=== PATIENT | female | born 1985 | race African-American/Black ===

== ENCOUNTER 2019-10-23 02:48 | Inpatient (IN) | payer OTHER ==
[~2019-10-23] VITALS: Ht 154.9 cm; Wt 59.0 kg
[2019-10-23] VITALS (9 sets, daily range): BP systolic 85–130; BP diastolic 44–67
--- NOTE | 2019-10-23 02:50 | NUR ---
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 Reports nausea; denies vomitting and diarrhea. patient ao3 with episodes of confusion. changed into gown; attached to monitor. all safety measures met.
--- NOTE | 2019-10-23 03:00 | NUR ---
ED Nurse Note: iv access established. blood collected; sent down to lab. unable to collect urine at this time; patient states urine will be provided when able. ekg done at bedside; NSR.
--- NOTE | 2019-10-23 03:28 | Emergency Room Report ---
History of Present Illness General Chief Complaint: Dizziness Source: Patient Present Illness HPI 34-year-old female presents the ED for evaluation. Brought in by EMS from home. Noted to be dizzy with nausea and vomiting. States she also feels short of breath. Denies chest pain. BP low per EMS. Denies any fevers or chills. States that she has "circulatory problems". States that she often has these problems and has to go to the hospital. Does not have a diagnosis. States she has not been prescribed any medication. No other aggravating relieving factors. Denies any other associated symptoms Allergies: Coded Allergies: IBUPROFEN (Verified Allergy, Unknown, 10/23/19) COVID-19 Screening Contact w/high risk pt: No Experienced COVID-19 symptoms?: No COVID-19 Testing performed ASSISTANT PROFESSOR: No Patient History Past Medical History: none Past Surgical History: none Pertinent Family History: none Social History: Denies: smoking, alcohol use, drug use Now: No Immunizations: UTD Reviewed Nursing Documentation: PMH: Agreed; PSxH: Agreed Review of Systems All Other Systems: negative except mentioned in HPI Physical Exam Vital Signs Date Time Temp Pulse Resp B/P (MAP) Pulse Ox O2 Delivery O2 Flow Rate FiO2 10/23/19 02:46 98.8 92 18 85/59 (68) 98 Room Air Sp02 EP Interpretation: reviewed, normal General Appearance: no apparent distress, alert, GCS 15, non-toxic Head: normocephalic, atraumatic Eyes: bilateral eye normal inspection, bilateral eye PERRL ENT: hearing grossly normal, normal pharynx, no angioedema, normal voice Neck: full range of motion, supple/symm/no masses Respiratory: chest non-tender, lungs clear, normal breath sounds, speaking full sentences Cardiovascular #1: regular rate, rhythm, no edema Cardiovascular #2: 2+ carotid (R), 2+ carotid (L), 2+ radial (R), 2+ radial (L) , 2+ dorsalis pedis (R), 2+ dorsalis pedis (L) Gastrointestinal: normal bowel sounds, non tender, soft, non-distended, no guarding, no rebound Rectal: deferred Genitourinary: normal inspection, no CVA tenderness Musculoskeletal: back normal, normal range of motion, gait/station normal, non- tender Neurologic: alert, motor strength/tone normal, oriented x3, sensory intact, responsive, speech normal Psychiatric: judgement/insight normal, memory normal, mood/affect normal, no suicidal/homicidal ideation Reflexes: 3+ bicep (R), 3+ bicep (L), 3+ tricep (R), 3+ tricep (L), 3+ knee (R) , 3+ knee (L) Lymphatic: no adenopathy Procedures Critical Care Time Critical Care Time i. I feel this is a highly complex case requiring extensive working including EKG/Rhythm strip, Xray/CT/US, Blood/urine lab work, repeat exams while in ED, and administration of strong opiates/narcotics for pain control, admission to hospital or close patient follow up. Total time: 45 min bedside evaluation and treatment excludes procedures (EKG). Reason for critical care: hyponatremia, hypokalemia, renal insufficiency Possible complications: hypotension, hypertension, MS, shock, arrhythmias, metabolic acidosis, end organ damage, respiratory failure. Interventions: Labs, IV fluids, EKG, potassium repletion Course: Patient presenting with dizziness, vomiting. Hypotensive in triage. Given IV fluids. EKG shows T wave inversions in lateral leads. Troponin negative. Sodium low. Potassium low. BUN/creatinine elevated. Given IV fluids. Given pepcid and Zofran. Potassium repleted. Consultations: nursing staff, EMS, family Performed by: Dr Otero Tolerated well condition = serious j. because of unstable vital signs this patient had a condition that could potentially threaten life or limb. I feel this is a critical patient who required my full attention while patient was considered critical. Total Critical Care Time excluding procedures was greater than 45 minutes Medical Decision Making Diagnostic Impression: Primary Impression: Dizziness Additional Impressions: Hyponatremia Hypokalemia ER Course Hospital Course 34 yo F presents to ED c/o dizziness. vomiting Differential diagnoses include: MS/unstable angina, V. tach, bradycardia, hyperkalemia, fluid overload Clinical course Patient placed on stretcher. on sourcing coordinator. After initial history and physical I ordered labs, EKG, IVFS, pepcid and zofran labs reviewed- Na 125, K 2.4. BUN/Cr 23/1.9m Hemoglobin/hematocrit normal. Given IV fluids. Given potassium repletion. BP initially hypotensive but improved with IV hydration. patient admitted to Tee's service I. I feel this is a highly complex case requiring extensive working including EKG/Rhythm strip, Xray/CT/US, Blood/urine lab work, repeat exams while in ED, and administration of strong opiates/narcotics for pain control, admission to hospital or close patient follow up. Diagnosis - dizziness, hyponatremia, hypokalemia admitted to telemetry in serious condition Laboratory Tests Test 10/23/19 03:00 10/23/19 03:50 10/23/19 04:45 White Blood Count 7.9 K/UL (4.8-10.8) Red Blood Count 4.86 M/UL (4.20-5.40) Hemoglobin 13.2 G/DL (12.0-16.0) Hematocrit 40.5 % (37.0-47.0) Mean Corpuscular Volume 83 FL (80-99) Mean Corpuscular Hemoglobin 27.1 PG (27.0-31.0) Mean Corpuscular Hemoglobin Concent 32.5 G/DL (32.0-36.0) Red Cell Distribution Width 12.8 % (11.6-14.8) Platelet Count 208 K/UL (150-450) Mean Platelet Volume 7.1 FL (6.5-10.1) Neutrophils (%) (Auto) 70.1 % (45.0-75.0) Lymphocytes (%) (Auto) 19.6 % (20.0-45.0) L Monocytes (%) (Auto) 7.7 % (1.0-10.0) Eosinophils (%) (Auto) 0.1 % (0.0-3.0) Basophils (%) (Auto) 2.4 % (0.0-2.0) H Sodium Level 125 MMOL/L (136-145) L Potassium Level 2.4 MMOL/L (3.5-5.1) *L Chloride Level 87 MMOL/L (98-107) L Carbon Dioxide Level 31 MMOL/L (21-32) Anion Gap 7 mmol/L (5-15) Blood Urea Nitrogen 23 mg/dL (7-18) H Creatinine 1.9 MG/DL (0.55-1.30) H Estimat Glomerular Filtration Rate 36.8 mL/min (>60) Glucose Level 114 MG/DL (74-106) H Calcium Level 9.1 MG/DL (8.5-10.1) Total Bilirubin 0.9 MG/DL (0.2-1.0) Aspartate Amino Transf (AST/SGOT) 21 U/L (15-37) Alanine Aminotransferase (ALT/SGPT) 28 U/L (12-78) Alkaline Phosphatase 84 U/L (46-116) Troponin I 0.000 ng/mL (0.000-0.056) Pro-B-Type Natriuretic Peptide 93 pg/mL (0-125) Total Protein 8.0 G/DL (6.4-8.2) Albumin 3.2 G/DL (3.4-5.0) L Globulin 4.8 g/dL Albumin/Globulin Ratio 0.7 (1.0-2.7) L Lipase 186 U/L (73-393) Urine Color Pale yellow Urine Appearance Clear Urine pH 5 (4.5-8.0) Urine Specific [place] 1.010 (1.005-1.035) Urine Protein Negative (NEGATIVE) Urine Glucose (UA) Negative (NEGATIVE) Urine Ketones Negative (NEGATIVE) Urine Blood Negative (NEGATIVE) Urine Nitrite Negative (NEGATIVE) Urine Bilirubin Negative (NEGATIVE) Urine Urobilinogen Normal MG/DL (0.0-1.0) Urine Leukocyte Esterase Negative (NEGATIVE) Urine HCG, Qualitative Negative (NEGATIVE) Urine Opiates Screen Negative (NEGATIVE) Urine Barbiturates Screen Negative (NEGATIVE) Phencyclidine (PCP) Screen Negative (NEGATIVE) Urine Amphetamines Screen Negative (NEGATIVE) Urine Benzodiazepines Screen Negative (NEGATIVE) Urine Cocaine Screen Negative (NEGATIVE) Urine Marijuana (THC) Screen Negative (NEGATIVE) EKG Diagnostic Results Rate: normal Rhythm: NSR ST Segments: other - twave inversions in inferior leads, lateral leads ASA given to the pt in ED: No Rhythm Strip Diag. Results EP Interpretation: yes Rhythm: NSR, no PVC's, no ectopy Last Vital Signs Date Time Temp Pulse Resp B/P (MAP) Pulse Ox O2 Delivery O2 Flow Rate FiO2 10/23/19 03:00 92 18 Room Air 10/23/19 03:00 98.8 85/59 98 Status: improved Disposition: SHORT-TERM HOSP Condition: Serious Referrals: [facility],REFERRING (PCP) Tomas Otero MD Oct 23, 2019 03:28
--- NOTE | 2019-10-23 03:31 | NUR ---
ED Nurse Note: imaging at bedside with radiology specialist.
[2019-10-23 03:47] LABS: BASOPHILS % (AUTO) 2.4 % (0.0-2.0); EOSINOPHILS % (AUTO) 0.1 % (0.0-3.0); HEMATOCRIT 40.5 % (37.0-47.0); HEMOGLOBIN 13.2 G/DL (12.0-16.0); LYMPHOCYTES % (AUTO) 19.6 % (20.0-45.0); MEAN CORPUSCULAR VOLUME 83 FL (80-99); MONOCYTES % (AUTO) 7.7 % (1.0-10.0); NEUTROPHILS % (AUTO) 70.1 % (45.0-75.0); PLATELET COUNT 208 K/UL (150-450); RED BLOOD COUNT 4.86 M/UL (4.20-5.40); RED CELL DISTRIBUTION WIDTH 12.8 % (11.6-14.8); WHITE BLOOD COUNT 7.9 K/UL (4.8-10.8)
[2019-10-23 04:25] LABS: ALANINE AMINOTRANSFERASE 28 U/L (12-78); ALBUMIN 3.2 G/DL (3.4-5.0); ALBUMIN/GLOBULIN RATIO 0.7 (1.0-2.7); ALKALINE PHOSPHATASE 84 U/L (46-116); ANION GAP 7 mmol/L (5-15); ASPARTATE AMINO TRANSFERASE 21 U/L (15-37); BILIRUBIN,TOTAL 0.9 MG/DL (0.2-1.0); BLOOD UREA NITROGEN 23 mg/dL (7-18); CALCIUM 9.1 MG/DL (8.5-10.1); CARBON DIOXIDE 31 MMOL/L (21-32); CHLORIDE 87 MMOL/L (98-107); CREATININE 1.9 MG/DL (0.55-1.30); SODIUM 125 MMOL/L (136-145)
[2019-10-23 04:33] LABS: POTASSIUM 2.4 MMOL/L (3.5-5.1)
[2019-10-23] MEDS ORDERED: NS w/KCl 40mEq 1,000 ML IV SCH (04:45)
--- NOTE | 2019-10-23 04:45 | NUR ---
ED Nurse Note: patient able to ambulate to bathroom with steady gait. urine collected; sent down to lab. reattached to monitor. will continue to monitor.
[2019-10-23 05:23] LABS: APPEARANCE,URINE CLEAR; BILIRUBIN, URINE NEGATIVE (NEGATIVE); COLOR,URINE PALE YELLOW; GLUCOSE, URINE (UA) NEGATIVE (NEGATIVE); KETONES,URINE NEGATIVE (NEGATIVE); LEUKOCYTE ESTERASE ,URINE NEGATIVE (NEGATIVE); NITRITE,URINE NEGATIVE (NEGATIVE); PH,URINE 5 (4.5-8.0); PROTEIN,URINE NEGATIVE (NEGATIVE); UROBILINOGEN,URINE NORMAL MG/DL (0.0-1.0)
--- NOTE | 2019-10-23 05:33 | NUR ---
ED Nurse Note: patient aware of pending transfer. resting in bed with no acute signs of distress. patient remains hypotensive; stable to baseline. sbp's 90-100s.
--- NOTE | 2019-10-23 06:17 | NUR ---
HAND-OFF: Report given to zahida Salmeron. endorsed pending transfer.
--- NOTE | 2019-10-23 06:20 | NUR ---
ED Nurse Note: received report from sylvain reynaga RN. patient is in stable condition at this time. will continue to monitor
--- NOTE | 2019-10-23 07:20 | NUR ---
TRANSFER TO FLOOR: Patient transferred to Telemetry as ordered, per Report given to zahida alejo. transported patient to tele accompanied by RN and EMT. patient has taken all belongings
--- NOTE | 2019-10-23 07:20 | NUR ---
NURSE NOTES: Received Pt report TIMOTHY Soni from ER. Pt admitted for dizziness, and electrolyte imbalance. Pt reported PMH of "confusion, SOB, fatigue, blurry vision, and circulatory condition". Pt lung sounds clear. Heart sounds WNL. Pt reports allergies to ibuprofen. No Hx of falls. Last BM 6-7 days ago. IV on L hand 18g, asymptomatic and intact. No complaints or S/S at this time. Will continue to monitor. Addendum: 10/23/19 at 0813 by Irene Bingham RN RN Bed low and locked, yellow socks provided and call light in reach. Pt instructed to utulize call light for any assistance. Pt verbalizes understanding.
[2019-10-23] MEDS: Miralax 17gm pkt ORAL PRN (08:54)
[2019-10-23] MEDS: NS w/KCl 40mEq 1,000 ML IV SCH ×2 (10:00→15:00)
--- NOTE | 2019-10-23 10:47 | History and Physical ---
History of Present Illness General Date patient seen: Oct 23, 2019 Time patient seen: 10:29 Reason for Hospitalization: Dizziness Present Illness HPI 34 year old Female with a PMH of "circulation issue" presents with nausea and vomiting for 8 weeks. It is non bloody and non bilious. She states that she can not keep nay food or drink down. It is provoked by her throat feeling dry which she cant get rid of. She has not had a BM in about6 days but when she did it was non bloody or black. He urine is output is low and very concentrated. She denies and fever, dysuria, chest pain, abdominal pain, headaches or recent travel. She denies drug use. She is recently out of work at [employer]. She has no family support. She feels down and depressed but does not have any SI or HI. Allergies: Coded Allergies: IBUPROFEN (Verified Allergy, Unknown, 10/23/19) COVID-19 Screening Contact w/high risk pt: No Experienced COVID-19 symptoms?: No Medication History Medications Narrative No meds Patient History History Provided By: Patient Healthcare decision maker Resuscitation status Full code Advanced Directive on File Social History Social History: (1) Non-smoker Review of Systems Constitutional: Reports: malaise, weakness; Denies: chills, sweats, fever Eye: Denies: double vision, nose congestion, acuity changes, discharge ENT: Reports: throat pain; Denies: ear discharge, nose pain, nose congestion, hearing loss Respiratory: Denies: cough, orthopnea, shortness of breath, stridor, [place] Cardiovascular: Denies: chest pain, edema, palpitations, syncope Gastrointestinal: Reports: constipation, nausea, vomiting; Denies: abdominal pain, diarrhea, melena, hematemesis Genitourinary: Denies: discharge, dysuria, frequency, pain, incontinence Musculoskeletal: Denies: back pain, joint pain, joint swelling, muscle pain Skin: Reports: dryness; Denies: rash, change in color, change in hair/nails Psychiatric: Reports: depressed feelings; Denies: SI, HI, hallucinations Neurological: Reports: dizziness; Denies: seizure, tingling, focal weakness Endocrine: Denies: excessive sweating, flushing, intolerance to temperature Hematologic/Lymphatic: Denies: anemia, easy bleeding, easy bruising Physical Exam General Appearance: WD/WN, alert, lethargic, alert oriented x3 Lines, tubes and drains: peripheral HEENT: normocephalic, atraumatic, anicteric, other - dry mucus membranes Neck: normal alignment, supple, normal inspection Respiratory/Chest: chest wall non-tender, lungs clear, normal breath sounds, no respiratory distress, no accessory muscle use Cardiovascular/Chest: normal peripheral pulses, normal rate, regular rhythm, no gallop/murmur, no JVD Abdomen: non tender, soft, no organomegaly, no mass, hypoactive bowel sounds Extremities: normal range of motion, non-tender, normal inspection Skin Exam: other - dry, tenting 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 normal, no motor/sensory deficits, alert, oriented x 3, responsive Last 24 Hour Vital Signs Date Time Temp Pulse Resp B/P (MAP) Pulse Ox O2 Delivery O2 Flow Rate FiO2 10/23/19 07:22 98.5 77 14 105/66 99 Room Air 10/23/19 07:13 98.5 77 14 105/66 99 Room Air 10/23/19 06:07 98.8 83 14 99/61 99 Room Air 10/23/19 05:02 98.8 75 18 100/60 100 Room Air 10/23/19 04:00 98.8 73 18 95/55 100 Room Air 10/23/19 03:00 92 18 Room Air 10/23/19 03:00 98.8 92 18 85/59 98 Room Air 10/23/19 02:46 98.8 92 18 85/59 (68) 98 Room Air Laboratory Tests Test 10/23/19 03:00 10/23/19 03:50 10/23/19 04:45 White Blood Count 7.9 K/UL (4.8-10.8) Red Blood Count 4.86 M/UL (4.20-5.40) Hemoglobin 13.2 G/DL (12.0-16.0) Hematocrit 40.5 % (37.0-47.0) Mean Corpuscular Volume 83 FL (80-99) Mean Corpuscular Hemoglobin 27.1 PG (27.0-31.0) Mean Corpuscular Hemoglobin Concent 32.5 G/DL (32.0-36.0) Red Cell Distribution Width 12.8 % (11.6-14.8) Platelet Count 208 K/UL (150-450) Mean Platelet Volume 7.1 FL (6.5-10.1) Neutrophils (%) (Auto) 70.1 % (45.0-75.0) Lymphocytes (%) (Auto) 19.6 % (20.0-45.0) L Monocytes (%) (Auto) 7.7 % (1.0-10.0) Eosinophils (%) (Auto) 0.1 % (0.0-3.0) Basophils (%) (Auto) 2.4 % (0.0-2.0) H Sodium Level 125 MMOL/L (136-145) L Potassium Level 2.4 MMOL/L (3.5-5.1) *L Chloride Level 87 MMOL/L (98-107) L Carbon Dioxide Level 31 MMOL/L (21-32) Anion Gap 7 mmol/L (5-15) Blood Urea Nitrogen 23 mg/dL (7-18) H Creatinine 1.9 MG/DL (0.55-1.30) H Estimat Glomerular Filtration Rate 36.8 mL/min (>60) Glucose Level 114 MG/DL (74-106) H Calcium Level 9.1 MG/DL (8.5-10.1) Total Bilirubin 0.9 MG/DL (0.2-1.0) Aspartate Amino Transf (AST/SGOT) 21 U/L (15-37) Alanine Aminotransferase (ALT/SGPT) 28 U/L (12-78) Alkaline Phosphatase 84 U/L (46-116) Troponin I 0.000 ng/mL (0.000-0.056) Pro-B-Type Natriuretic Peptide 93 pg/mL (0-125) Total Protein 8.0 G/DL (6.4-8.2) Albumin 3.2 G/DL (3.4-5.0) L Globulin 4.8 g/dL Albumin/Globulin Ratio 0.7 (1.0-2.7) L Lipase 186 U/L (73-393) Thyroid Stimulating Hormone (TSH) Pending Urine Color Pale yellow Urine Appearance Clear Urine pH 5 (4.5-8.0) Urine Specific [place] 1.010 (1.005-1.035) Urine Protein Negative (NEGATIVE) Urine Glucose (UA) Negative (NEGATIVE) Urine Ketones Negative (NEGATIVE) Urine Blood Negative (NEGATIVE) Urine Nitrite Negative (NEGATIVE) Urine Bilirubin Negative (NEGATIVE) Urine Urobilinogen Normal MG/DL (0.0-1.0) Urine Leukocyte Esterase Negative (NEGATIVE) Urine HCG, Qualitative Negative (NEGATIVE) Urine Opiates Screen Negative (NEGATIVE) Urine Barbiturates Screen Negative (NEGATIVE) Phencyclidine (PCP) Screen Negative (NEGATIVE) Urine Amphetamines Screen Negative (NEGATIVE) Urine Benzodiazepines Screen Negative (NEGATIVE) Urine Cocaine Screen Negative (NEGATIVE) Urine Marijuana (THC) Screen Negative (NEGATIVE) Height (Feet): 5 Height (Inches): 1.00 Weight (Pounds): 150 Medications Current Medications Medications (Trade) Dose Ordered Sig/Robert Route PRN Reason Start Time Stop Time Status Last Admin Dose Admin Acetaminophen (Tylenol) 650 mg Q4H PRN ORAL Mild Pain (Pain Scale 1-3) 10/23/19 10:30 11/22/19 10:29 UNV Acetaminophen (Tylenol) 650 mg Q4H PRN ORAL Temp >100.5 10/23/19 10:30 11/22/19 10:29 UNV Acetaminophen (Tylenol) 650 mg Q4H PRN RECTAL Mild Pain (Pain Scale 1-3) 10/23/19 10:30 11/22/19 10:29 UNV Acetaminophen (Tylenol) 650 mg Q4H PRN RECTAL Temp >100.5 10/23/19 10:30 11/22/19 10:29 UNV Dextrose (Dextrose 50%) 25 ml Q30M PRN IV Hypoglycemia 10/23/19 10:30 01/21/20 10:29 UNV Dextrose (Dextrose 50%) 50 ml Q30M PRN IV Hypoglycemia 10/23/19 10:30 01/21/20 10:29 UNV Dextrose/ Electrolytes 1,000 ml @ 125 mls/hr Q8H IV 10/23/19 11:16 10/24/19 11:15 UNV Diphenhydramine HCl (Benadryl) 25 mg Q6H PRN ORAL Itching/Pruritis 10/23/19 10:30 11/22/19 10:29 UNV Heparin Sodium (Porcine) (Heparin 5000 units/ml) 5,000 units EVERY 12 HOURS SUBQ 10/23/19 21:00 12/07/19 20:59 UNV Metoclopramide HCl (Reglan) 10 mg Q6H PRN IVP Nausea & Vomiting 10/23/19 10:30 11/22/19 10:29 UNV Ondansetron HCl (Zofran) 4 mg Q6H PRN IVP Nausea & Vomiting 10/23/19 09:00 11/22/19 08:59 10/23/19 08:54 Ondansetron HCl (Zofran) 4 mg Q6H PRN IVP Nausea & Vomiting 10/23/19 10:30 11/22/19 10:29 UNV Pantoprazole (Protonix) 40 mg DAILY IV 10/23/19 10:30 11/22/19 10:29 UNV Polyethylene Glycol (Miralax) 17 gm DAILY PRN ORAL Constipation 10/23/19 09:00 11/22/19 08:59 10/23/19 08:54 Potassium Chloride/Sodium Chloride 1,000 ml @ 200 mls/hr Q5H IV 10/23/19 10:00 11/22/19 09:59 Assessment/Plan Problem List: (1) Intractable nausea and vomiting ICD Codes: R11.2 - Nausea with vomiting, unspecified SNOMED: 042924137 (2) Hyponatremia ICD Codes: E87.1 - Hypo-osmolality and hyponatremia SNOMED: 65746528, 817332740 (3) Dizziness ICD Codes: R42 - Dizziness and giddiness SNOMED: 265809642, 603451620 (4) Hypokalemia ICD Codes: E87.6 - Hypokalemia SNOMED: 48665776, 041191605 Assessment/Plan: 34 year old Female with a PMH of "circulation issue" presents with nausea and vomiting for 8 weeks. #Nausea/Vomiting - likely psychogenic but will evaluate organic causes #Hyponatremia #Hypokalemia #Volume depletion - Inpatient care - IV Fluid hydration with replacement of electrolytes - Trend BMP - Zofran 4mg PRN for nausea and vomiting, monitor QTC - Protonix 40mg IV daily - Advance diet as tolerated - Consult to nephrology - Consult to Gastroenterology - Consult to psychiatry Heparin SubQ 5000 BID Case MGMT consult for PCP establishment director of student financial services for home safety I spent 72 minutes on this admission with 46 on care coordination and counseling. I discussed with all consultants. I discussed with RNs and pharmacy. I review imaging. Seth Thompson M.D. Oct 23, 2019 10:47
[2019-10-23] MEDS ORDERED: Metoclopramide 10mg/2ml Inj IVP PRN (11:00)
[2019-10-23] MEDS ORDERED: Acetaminophen 650 MG SUPP RECTAL PRN ×2 (11:00)
[2019-10-23] MEDS: Pantoprazole Inj IV SCH (11:30)
[2019-10-23] MEDS: D5NS w/KCl 40mEq 1000ml 1,000 ML IV SCH ×2 (11:30→20:13)
--- NOTE | 2019-10-23 12:51 | NUR ---
BOX OFFICE AGENT NOTE SW met w/ pt to evaluate home safety. Pt presents as A&O4x. Pt resides alone at [address] [place] [address]. PT reports there are no stairs in her house. Pt denies having hx of fall. Pt has hx of working at [employer]. PT is currently unemployed. PT currently receives no income after her food stamp has stopped. SW encouraged pt to apply GR and food stamp through website as soon as possible. PT verbalized understanding. RUDs all negative. PT did not provide emergency contact. PT shares she does not have anyone who could provide assistance if needed. Pt shares she has been independent w/ ADLs and IADLs prior to admission. Pt did not use DME. However, pt reports she may need DME. PT to evaluate the mobility.
--- NOTE | 2019-10-23 13:08 | Consultation ---
History of Present Illness General Chief Complaint: Dizziness Present Illness HPI 34 year old Female with a PMH of "circulation issue" presents with nausea and vomiting for 8 weeks. It is non bloody and non bilious. She states that she can not keep nay food or drink down. It is provoked by her throat feeling dry which she cant get rid of. She has not had a BM in about6 days but when she did it was non bloody or black. He urine is output is low and very concentrated. She denies and fever, dysuria, chest pain, abdominal pain, headaches or recent travel. She denies drug use. She is recently out of work at [employer]. She has no family support. She feels down and depressed but does not have any SI or HI. Allergies: Coded Allergies: IBUPROFEN (Verified Allergy, Unknown, 10/23/19) Patient History Healthcare decision maker Resuscitation status Advanced Directive on File Review of Systems Constitutional: Reports: weakness Eye: Denies: no symptoms, see HPI, eye pain, blurred vision, tearing, double vision, nose pain, nose congestion, acuity changes, discharge, other ENT: Denies: no symptoms, see HPI, ear pain, ear discharge, nose pain, nose congestion, throat pain, throat swelling, mouth pain, hearing loss, nasal discharge, other Respiratory: Denies: no symptoms, see HPI, cough, orthopnea, shortness of breath, stridor, wheezing, HASKINS, sputum, other Cardiovascular: Denies: no symptoms, see HPI, chest pain, edema, palpitations, syncope, PND, other Gastrointestinal: Denies: no symptoms, see HPI, abdominal pain, constipation, diarrhea, nausea, vomiting, melena, hematemesis, other Genitourinary: Denies: no symptoms, see HPI, discharge, dysuria, frequency, hematuria, pain, retention, incontinence, urgency, vag bleed/dc, other Musculoskeletal: Denies: no symptoms, see HPI, back pain, gout, joint pain, joint swelling, muscle pain, muscle stiffness, other Skin: Denies: no symptoms, see HPI, rash, change in color, change in hair/nails , dryness, lesions, other Psychiatric: Denies: no symptoms, see HPI, prior hx, anxiety, depressed feelings, emotional problems, SI, HI, hallucinations, other Neurological: Denies: no symptoms, see HPI, headache, numbness, paresthesia, seizure, tingling, tremors, focal weakness, syncope, dizziness, other Endocrine: Denies: no symptoms, see HPI, excessive sweating, flushing, intolerance to temperature, increased thirst, increased urine, unexplained weight loss, other Hematologic/Lymphatic: Denies: no symptoms, see HPI, anemia, blood clots, easy bleeding, easy bruising, swollen glands, diathesis, other Physical Exam General Appearance: no apparent distress, alert Lines, tubes and drains: peripheral HEENT: normocephalic Neck: non-tender, normal alignment Respiratory/Chest: chest wall non-tender, lungs clear Cardiovascular/Chest: normal peripheral pulses, normal rate, regular rhythm Abdomen: normal bowel sounds Extremities: normal range of motion, non-tender Neurologic: alert, oriented x 3 Lymphatic: posterior cervical (L) Last 24 Hour Vital Signs Date Time Temp Pulse Resp B/P (MAP) Pulse Ox O2 Delivery O2 Flow Rate FiO2 10/23/19 09:00 Room Air 10/23/19 08:09 Room Air 10/23/19 07:22 98.5 77 14 105/66 99 Room Air 10/23/19 07:13 98.5 77 14 105/66 99 Room Air 10/23/19 06:07 98.8 83 14 99/61 99 Room Air 10/23/19 05:02 98.8 75 18 100/60 100 Room Air 10/23/19 04:00 98.8 73 18 95/55 100 Room Air 10/23/19 03:00 92 18 Room Air 10/23/19 03:00 98.8 92 18 85/59 98 Room Air 10/23/19 02:46 98.8 92 18 85/59 (68) 98 Room Air Laboratory Tests Test 10/23/19 03:00 10/23/19 03:50 10/23/19 04:45 White Blood Count 7.9 K/UL (4.8-10.8) Red Blood Count 4.86 M/UL (4.20-5.40) Hemoglobin 13.2 G/DL (12.0-16.0) Hematocrit 40.5 % (37.0-47.0) Mean Corpuscular Volume 83 FL (80-99) Mean Corpuscular Hemoglobin 27.1 PG (27.0-31.0) Mean Corpuscular Hemoglobin Concent 32.5 G/DL (32.0-36.0) Red Cell Distribution Width 12.8 % (11.6-14.8) Platelet Count 208 K/UL (150-450) Mean Platelet Volume 7.1 FL (6.5-10.1) Neutrophils (%) (Auto) 70.1 % (45.0-75.0) Lymphocytes (%) (Auto) 19.6 % (20.0-45.0) L Monocytes (%) (Auto) 7.7 % (1.0-10.0) Eosinophils (%) (Auto) 0.1 % (0.0-3.0) Basophils (%) (Auto) 2.4 % (0.0-2.0) H Sodium Level 125 MMOL/L (136-145) L Potassium Level 2.4 MMOL/L (3.5-5.1) *L Chloride Level 87 MMOL/L (98-107) L Carbon Dioxide Level 31 MMOL/L (21-32) Anion Gap 7 mmol/L (5-15) Blood Urea Nitrogen 23 mg/dL (7-18) H Creatinine 1.9 MG/DL (0.55-1.30) H Estimat Glomerular Filtration Rate 36.8 mL/min (>60) Glucose Level 114 MG/DL (74-106) H Calcium Level 9.1 MG/DL (8.5-10.1) Total Bilirubin 0.9 MG/DL (0.2-1.0) Aspartate Amino Transf (AST/SGOT) 21 U/L (15-37) Alanine Aminotransferase (ALT/SGPT) 28 U/L (12-78) Alkaline Phosphatase 84 U/L (46-116) Troponin I 0.000 ng/mL (0.000-0.056) Pro-B-Type Natriuretic Peptide 93 pg/mL (0-125) Total Protein 8.0 G/DL (6.4-8.2) Albumin 3.2 G/DL (3.4-5.0) L Globulin 4.8 g/dL Albumin/Globulin Ratio 0.7 (1.0-2.7) L Lipase 186 U/L (73-393) Thyroid Stimulating Hormone (TSH) 1.764 uiU/mL (0.358-3.740) Urine Color Pale yellow Urine Appearance Clear Urine pH 5 (4.5-8.0) Urine Specific [place] 1.010 (1.005-1.035) Urine Protein Negative (NEGATIVE) Urine Glucose (UA) Negative (NEGATIVE) Urine Ketones Negative (NEGATIVE) Urine Blood Negative (NEGATIVE) Urine Nitrite Negative (NEGATIVE) Urine Bilirubin Negative (NEGATIVE) Urine Urobilinogen Normal MG/DL (0.0-1.0) Urine Leukocyte Esterase Negative (NEGATIVE) Urine HCG, Qualitative Negative (NEGATIVE) Urine Opiates Screen Negative (NEGATIVE) Urine Barbiturates Screen Negative (NEGATIVE) Phencyclidine (PCP) Screen Negative (NEGATIVE) Urine Amphetamines Screen Negative (NEGATIVE) Urine Benzodiazepines Screen Negative (NEGATIVE) Urine Cocaine Screen Negative (NEGATIVE) Urine Marijuana (THC) Screen Negative (NEGATIVE) Height (Feet): 5 Height (Inches): 1.00 Weight (Pounds): 150 Medications Current Medications Medications (Trade) Dose Ordered Sig/Robert Route PRN Reason Start Time Stop Time Status Last Admin Dose Admin Acetaminophen (Tylenol) 650 mg Q4H PRN ORAL Mild Pain (Pain Scale 1-3) 10/23/19 10:30 11/22/19 10:29 Acetaminophen (Tylenol) 650 mg Q4H PRN ORAL Temp >100.5 10/23/19 11:00 11/22/19 10:59 Acetaminophen (Tylenol) 650 mg Q4H PRN RECTAL Mild Pain (Pain Scale 1-3) 10/23/19 11:00 11/22/19 10:59 Acetaminophen (Tylenol) 650 mg Q4H PRN RECTAL Temp >100.5 10/23/19 11:00 11/22/19 10:59 Dextrose (Dextrose 50%) 25 ml Q30M PRN IV Hypoglycemia 10/23/19 11:00 01/21/20 10:59 Dextrose (Dextrose 50%) 50 ml Q30M PRN IV Hypoglycemia 10/23/19 11:00 01/21/20 10:59 Dextrose/ Electrolytes 1,000 ml @ 125 mls/hr Q8H IV 10/23/19 11:30 10/24/19 11:29 10/23/19 11:30 Diphenhydramine HCl (Benadryl) 25 mg Q6H PRN ORAL Itching/Pruritis 10/23/19 11:00 11/22/19 10:59 Heparin Sodium (Porcine) (Heparin 5000 units/ml) 5,000 units EVERY 12 HOURS SUBQ 10/23/19 21:00 12/07/19 20:59 Metoclopramide HCl (Reglan) 10 mg Q6H PRN IVP Nausea & Vomiting 10/23/19 11:00 11/22/19 10:59 Ondansetron HCl (Zofran) 4 mg Q6H PRN IVP Nausea & Vomiting 10/23/19 09:00 11/22/19 08:59 10/23/19 08:54 Pantoprazole (Protonix) 40 mg DAILY IV 10/23/19 11:30 11/22/19 11:29 Polyethylene Glycol (Miralax) 17 gm DAILY PRN ORAL Constipation 10/23/19 09:00 11/22/19 08:59 10/23/19 08:54 Potassium Chloride/Sodium Chloride 1,000 ml @ 200 mls/hr Q5H IV 10/23/19 10:00 11/22/19 09:59 Assessment/Plan Diagnosis Mina I: #KODI due to volume depletion in the setting of nausea and emesis #Severe hypokalemia #Hyponatremia - hypovolumic #Nausea and emesis - IVF - D5NS + 40kcl at 125 cc/hr - replete K IV today - monitor BMP BID - antiemetics - Gi eval - avoid nephrotoxins - defer renal imaging for now - monitor renal function Time spent 70 min- greater than 50% on care coordination and counseling Sherley Alfonso M.D. Oct 23, 2019 13:08
--- NOTE | 2019-10-23 14:02 | NUR ---
CASE MANAGEMENT:REVIEW 34 YR OLD FEMALE BIBA CC; DIZZINESS. NEAR SYNCOPY SI: HYPONATREMIA. HYPOKALEMIA 98.8 92 18 85/59 98% ON RA NA-125 K-2.4 BUN+23 CR+1.9 IS: IV ZOFRAN IV PEPCID 1L NS BOLUS IVF+KCL CHEST XRAY : TO TELEMETRY DCP: FROM HOME PLAN: ORTHOSTATIC VITAL SIGNS CARDIAC CONSULT
--- NOTE | 2019-10-23 14:12 | NUR ---
INSURANCE CLINICALS NAD [place] [facility] [place] [phone] F: [phone]
[2019-10-23 15:51] LABS: ANION GAP 7 mmol/L (5-15); BLOOD UREA NITROGEN 16 mg/dL (7-18); CALCIUM 8.9 MG/DL (8.5-10.1); CARBON DIOXIDE 30 MMOL/L (21-32); CHLORIDE 94 MMOL/L (98-107); CREATININE 1.6 MG/DL (0.55-1.30); SODIUM 130 MMOL/L (136-145)
[2019-10-23 16:02] LABS: POTASSIUM 2.2 MMOL/L (3.5-5.1)
--- NOTE | 2019-10-23 17:43 | Diagnostic Imaging Report ---
Indication: Shortness of breath Technique: One view of the chest Comparison: none Findings: Lungs and pleural spaces are clear. Heart size is normal. Impression: No acute process
--- NOTE | 2019-10-23 19:10 | Neurology Progress Note ---
Interim History Interim History Interim History 34 year old Female with a PMH of "circulation issue" presents with nausea and vomiting for 8 weeks. It is non bloody and non bilious. She states that she can not keep nay food or drink down. It is provoked by her throat feeling dry which she cant get rid of. She has not had a BM in about6 days but when she did it was non bloody or black. He urine is output is low and very concentrated. She denies and fever, dysuria, chest pain, abdominal pain, headaches or recent travel. She denies drug use. Review of Systems All Systems: reviewed and negative except above Objective Physical Exam Last Vital Signs Date Time Temp Pulse Resp B/P (MAP) Pulse Ox O2 Delivery O2 Flow Rate FiO2 10/23/19 16:00 97.7 82 20 96/44 (61) 99 10/23/19 09:00 Room Air Laboratory Tests Test 10/23/19 03:00 10/23/19 03:50 10/23/19 04:45 10/23/19 15:26 White Blood Count 7.9 K/UL (4.8-10.8) Red Blood Count 4.86 M/UL (4.20-5.40) Hemoglobin 13.2 G/DL (12.0-16.0) Hematocrit 40.5 % (37.0-47.0) Mean Corpuscular Volume 83 FL (80-99) Mean Corpuscular Hemoglobin 27.1 PG (27.0-31.0) Mean Corpuscular Hemoglobin Concent 32.5 G/DL (32.0-36.0) Red Cell Distribution Width 12.8 % (11.6-14.8) Platelet Count 208 K/UL (150-450) Mean Platelet Volume 7.1 FL (6.5-10.1) Neutrophils (%) (Auto) 70.1 % (45.0-75.0) Lymphocytes (%) (Auto) 19.6 % (20.0-45.0) L Monocytes (%) (Auto) 7.7 % (1.0-10.0) Eosinophils (%) (Auto) 0.1 % (0.0-3.0) Basophils (%) (Auto) 2.4 % (0.0-2.0) H Sodium Level 125 MMOL/L (136-145) L 130 MMOL/L (136-145) L Potassium Level 2.4 MMOL/L (3.5-5.1) *L 2.2 MMOL/L (3.5-5.1) *L Chloride Level 87 MMOL/L (98-107) L 94 MMOL/L (98-107) L Carbon Dioxide Level 31 MMOL/L (21-32) 30 MMOL/L (21-32) Anion Gap 7 mmol/L (5-15) 7 mmol/L (5-15) Blood Urea Nitrogen 23 mg/dL (7-18) H 16 mg/dL (7-18) Creatinine 1.9 MG/DL (0.55-1.30) H 1.6 MG/DL (0.55-1.30) H Estimat Glomerular Filtration Rate 36.8 mL/min (>60) 45.0 mL/min (>60) Glucose Level 114 MG/DL (74-106) H 148 MG/DL (74-106) H Calcium Level 9.1 MG/DL (8.5-10.1) 8.9 MG/DL (8.5-10.1) Total Bilirubin 0.9 MG/DL (0.2-1.0) Aspartate Amino Transf (AST/SGOT) 21 U/L (15-37) Alanine Aminotransferase (ALT/SGPT) 28 U/L (12-78) Alkaline Phosphatase 84 U/L (46-116) Troponin I 0.000 ng/mL (0.000-0.056) Pro-B-Type Natriuretic Peptide 93 pg/mL (0-125) Total Protein 8.0 G/DL (6.4-8.2) Albumin 3.2 G/DL (3.4-5.0) L Globulin 4.8 g/dL Albumin/Globulin Ratio 0.7 (1.0-2.7) L Lipase 186 U/L (73-393) Thyroid Stimulating Hormone (TSH) 1.764 uiU/mL (0.358-3.740) Urine Color Pale yellow Urine Appearance Clear Urine pH 5 (4.5-8.0) Urine Specific [place] 1.010 (1.005-1.035) Urine Protein Negative (NEGATIVE) Urine Glucose (UA) Negative (NEGATIVE) Urine Ketones Negative (NEGATIVE) Urine Blood Negative (NEGATIVE) Urine Nitrite Negative (NEGATIVE) Urine Bilirubin Negative (NEGATIVE) Urine Urobilinogen Normal MG/DL (0.0-1.0) Urine Leukocyte Esterase Negative (NEGATIVE) Urine HCG, Qualitative Negative (NEGATIVE) Urine Opiates Screen Negative (NEGATIVE) Urine Barbiturates Screen Negative (NEGATIVE) Phencyclidine (PCP) Screen Negative (NEGATIVE) Urine Amphetamines Screen Negative (NEGATIVE) Urine Benzodiazepines Screen Negative (NEGATIVE) Urine Cocaine Screen Negative (NEGATIVE) Urine Marijuana (THC) Screen Negative (NEGATIVE) General: well nourished Head: normocophalic Neck: no rigidity EENT: benign Neurologic Exam Mental Status: awake, alert, oriented x4 Speech: normal speech Language: normal language Objective normal neuro exam Impression/Recommendations Problems: (1) Hypokalemia (2) Dizziness (3) Hyponatremia (4) Intractable nausea and vomiting Diagnostic Impression 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
--- NOTE | 2019-10-23 19:43 | NUR ---
NURSE HAND-OFF REPORT: Important Events on Shift: sodium repeat 2.2 Patient Status: fc, stable Diet: clear liquid Pending Orders: n/a Pending Results/Labs:n/a Pending MD notification: n/a Latest Vital Signs: Temperature 97.7 , Pulse 96 , B/P 96 /44 , Respiratory Rate 20 , O2 SAT 99 , Room Air, O2 Flow Rate . Vital Sign Comment: EKG Rhythm: Sinus Rhythm Rhythm change?: N MD Notified?: N - MD Response: Latest Pindeo Fall Score: 20 Fall Risk: Low Risk Safety Measures: Call light Within Reach, Bed Alarm Zone 2, Side Rails Side Rails x2, Bed position Low and Locked. Fall Precautions: Yellow Socks Yellow Gown Patient Fall Education Report given to TIMOTHY Cortes.
--- NOTE | 2019-10-23 19:43 | NUR ---
NURSE NOTES: Received report from Irene RN, pt. in bed awake, A/O x's3 -able to make needs known, no signs or symptoms of acute cardiac or respiratory distress noted, bed alarm on, side rails up x's 3 and safety brakes engaged, call light within easy reach, pt. appears to be sating well on RA- no distress noted, pt. appears calm, HOB elevated, pt. appears clean and dry, RT. AC 22FG running D5NS +40KCL at 125cc/hr- IV intact and patent, LAC 22G IV intact and patent-SL, safety measures continued, will continue with plan of care.
[2019-10-23] MEDS: Heparin 5000 units/ml inj SUBQ SCH (20:14)
--- NOTE | 2019-10-23 20:24 | NUR ---
NURSE NOTES: pt. stating Zofran ineffective earlier- did not help with nausea symptoms- administered Reglan- will continue to monitor pt.
--- NOTE | 2019-10-23 20:57 | NUR ---
NURSE NOTES: pt. noted a couple times trying to get out of her bed and walking around- advised pt. not to walk around as her gait is unsteady and at risk for fall- pt. states she understands and will call for assist- will continue to monitor.
--- NOTE | 2019-10-23 23:38 | NUR ---
NURSE NOTES: pt. refusing bed bath stating she will give herself a wipe down in am- pt. remains stable- will continue to monitor pt.
[2019-10-24] VITALS (7 sets, daily range): BP systolic 89–122; BP diastolic 47–78
--- NOTE | 2019-10-24 03:30 | NUR ---
NURSE HAND-OFF REPORT: Important Events on Shift: none Patient Status: stable Diet: clear liquid Pending Orders: Pending Results/Labs: Pending MD notification: Latest Vital Signs: Temperature 97.8 , Pulse 81 , B/P 122 /69 , Respiratory Rate 18 , O2 SAT 99 , Room Air, O2 Flow Rate . Vital Sign Comment: EKG Rhythm: Sinus Rhythm Rhythm change?: N MD Notified?: N - MD Response: Latest Pinedo Fall Score: 20 Fall Risk: Low Risk Safety Measures: Call light Within Reach, Bed Alarm Zone 2, Side Rails Side Rails x2, Bed position Low and Locked. Fall Precautions: Yellow Socks Yellow Gown Patient Fall Education Report given to TIMOTHY Gallagher
--- NOTE | 2019-10-24 03:30 | NUR ---
NURSE NOTES: Patient in stable condition, feeling weak, noticed right upper arm pain due to potassium infusion, site is intact, swelling is present. Addendum: 10/24/19 at 0502 by Aileen Holguin RN Stopped IV infusion and assess the left AC 22g IV and it is not flushing well and it is also causing the patient pain upon flushing.
[2019-10-24] MEDS: D5NS w/KCl 40mEq 1000ml 1,000 ML IV SCH ×2 (04:11→06:32)
--- NOTE | 2019-10-24 05:04 | NUR ---
NURSE NOTES: Unable to successfully find an IV, charge nurse Arielle is attempting to put in a successful IV.
--- NOTE | 2019-10-24 05:34 | NUR ---
NURSE NOTES: Unable to obtain a successful IV at this time, notified ICU personnel for assistance.
--- NOTE | 2019-10-24 06:32 | NUR ---
NURSE NOTES: TIMOTHY Dominguez from ICU, placed a 22g IV left hand. Started prescribed fluids in left hand 22g IV as soon as it was feasible, as patient veins were fragile and unable to accomodate IV catheters so readily. Patient no longer complains of pain in right upper arm. Right upper arm is able to perform active range of motion and swelling has gone down slightly and sensation remains intact.
--- NOTE | 2019-10-24 06:36 | NUR ---
CASE MANAGEMENT: REVIEW SI: SYNCOPAL EPISODE . HYPOKALEMIA . VOMITING T 97.9 HR 84 RR 18 BP 122/69 SAT 99% ROOM AIR IS: HEPARIN SUBQ Q12HR D5 0.9 NS w/KCl 40MEQ IVF @ 125ML/HR PROTONIX IV QD FULL LIQUID DIET ADVANCE TOLERATED TELEMETRY UNIT STATUS DCP: PATIENT IS FROM HOME. DISCHARGE PLANNING. PATIENT NEEDS A PCP
--- NOTE | 2019-10-24 06:45 | NUR ---
INSURANCE CLINICALS NAD REVIEWS FAXED TO [facility] [place] T: [phone] F: [phone] Addendum: 10/24/19 at 1243 by BIB LEVIN CM GAGE [phone]
--- NOTE | 2019-10-24 07:10 | NUR ---
NURSE HAND-OFF REPORT: Important Events on Shift: hypotensive but last BP 07:00 was 103/70 Patient Status: Diet: Pending Orders: Pending Results/Labs: Pending MD notification: Latest Vital Signs: Temperature 98.2 , Pulse 96 , B/P 100 /78 , Respiratory Rate 16 , O2 SAT 100 , Room Air, O2 Flow Rate . Vital Sign Comment: EKG Rhythm: Sinus Rhythm Rhythm change?: N MD Notified?: N - MD Response: Latest Pinedo Fall Score: 20 Fall Risk: Low Risk Safety Measures: Call light Within Reach, Bed Alarm Zone 2, Side Rails Side Rails x2, Bed position Low and Locked. Fall Precautions: Yellow Socks Yellow Gown Patient Fall Education Report given to .
--- NOTE | 2019-10-24 07:15 | Consultation ---
DATE OF CONSULTATION: 10/24/2019 HISTORY OF PRESENT ILLNESS: This is a 34-year-old female who is being admitted due to vomiting for the past 8 weeks. The patient was anxious, paranoid, OCD-like symptoms, depressed, anhedonia, worthlessness, hopelessness. The patient is reluctant to take any psychotropic medication. She is distrustful and not a good historian. the patient has not been to a psychiatric hospital nor . PAST PSYCHIATRIC HISTORY: None known. PAST MEDICAL HISTORY: Nonsignificant. ALLERGIES: Ibuprofen. SUBSTANCE ABUSE HISTORY: No known history of illicit drug use or alcohol. MENTAL STATUS EXAMINATION: The patient is alert, oriented times self, place, and situation. Mood is depressed and anxious. Affect is flat. Thought process concrete. Thought content, no suicidal or homicidal ideation. Cognition is impaired. Insight and judgment are limited. ASSESSMENT: [place] I Rule out major depressive disorder, psychiatric symptoms. OCD. [place] II Deferred. [place] III Nausea and vomiting. [place] IV Unknown. [place] V 50 PLAN: 1. Lexapro 10 mg in the morning. 2. Seroquel 50 mg at bedtime. 3. The patient is not meeting the criteria for 5150. Afshan Roldan M.D. DR: RUDDY JOB#: [id number] CC: KEIKO
--- NOTE | 2019-10-24 07:21 | NUR ---
NURSE NOTES: received report from TIMOTHY Gallagher. Pt is AOX4, stable and sitting up in bed eating breakfast. Pt reports no nausea, pain or dizziness at this time. Pt IV on L hand 22g asymptomatic, and intact. Pt has no S/S or complaints of distress at this time. Bed is low and locked, call light in reach, bed alarm on and Pt reminded to call for help if needed. Pt verbalized understanding. Will continue to monitor.
[2019-10-24 07:28] LABS: BASOPHILS % (AUTO) 0.9 % (0.0-2.0); EOSINOPHILS % (AUTO) 0.6 % (0.0-3.0); HEMATOCRIT 34.7 % (37.0-47.0); HEMOGLOBIN 11.2 G/DL (12.0-16.0); LYMPHOCYTES % (AUTO) 35.7 % (20.0-45.0); MEAN CORPUSCULAR VOLUME 85 FL (80-99); MONOCYTES % (AUTO) 5.7 % (1.0-10.0); NEUTROPHILS % (AUTO) 57.2 % (45.0-75.0); PLATELET COUNT 179 K/UL (150-450); RED BLOOD COUNT 4.08 M/UL (4.20-5.40); RED CELL DISTRIBUTION WIDTH 13.8 % (11.6-14.8); WHITE BLOOD COUNT 6.2 K/UL (4.8-10.8)
[2019-10-24 07:38] LABS: ANION GAP 10 mmol/L (5-15); BLOOD UREA NITROGEN 8 mg/dL (7-18); CALCIUM 9.2 MG/DL (8.5-10.1); CARBON DIOXIDE 23 MMOL/L (21-32); CHLORIDE 101 MMOL/L (98-107); CREATININE 1.2 MG/DL (0.55-1.30); SODIUM 134 MMOL/L (136-145)
[2019-10-24] MEDS: Heparin 5000 units/ml inj SUBQ SCH ×2 (08:23→20:05)
[2019-10-24] MEDS: Pantoprazole Inj IV SCH (09:00)
[2019-10-24] MEDS ORDERED: Potassium Phosphate 15mm/250ml 250 ML IVPB SCH ×2 (10:00→14:15)
--- NOTE | 2019-10-24 10:00 | NUR ---
NURSE NOTES: Spoke to Dr Mills regarding Pt refusal and not tolerating IV medications. Dr Mills gave orders to d/c IV meds and ordered PO meds. spoke to Pt. Pt tolerates PO meds.
--- NOTE | 2019-10-24 11:19 | General Progress Note ---
Assessment/Plan Problem List: (1) Intractable nausea and vomiting ICD Codes: R11.2 - Nausea with vomiting, unspecified SNOMED: 759447083 (2) Hyponatremia ICD Codes: E87.1 - Hypo-osmolality and hyponatremia SNOMED: 86919156, 719394585 (3) Dizziness ICD Codes: R42 - Dizziness and giddiness SNOMED: 447997767, 077319499 (4) Hypokalemia ICD Codes: E87.6 - Hypokalemia SNOMED: 13134820, [id number] Assessment/Plan: 34 year old Female with a PMH of "circulation issue" presents with nausea and vomiting for 8 weeks. #Nausea/Vomiting - likely psychogenic but will evaluate organic causes #Hyponatremia #Hypokalemia #Volume depletion - Inpatient care - IV Fluid hydration with replacement of electrolytes - Trend BMP - Zofran 4mg PRN for nausea and vomiting, monitor QTC - Protonix 40mg PO daily - Advance diet as tolerated - Consult to nephrology - Consult to Gastroenterology - Consult to psychiatry Heparin SubQ 5000 BID Case MGMT consult for PCP establishment administrative services officer for home safety I spent 35 minutes on this admission with 18 on care coordination and counseling. I discussed with all consultants. I discussed with RNs and pharmacy. I review imaging. Subjective Date patient seen: Oct 24, 2019 Time patient seen: 08:30 Constitutional: Denies: fever, malaise, weakness HEENT: Reports: throat pain; Denies: blurred vision, mouth pain, mouth swelling Cardiovascular: Denies: chest pain, edema, irregular heart rate, lightheadedness, palpitations Respiratory: Denies: shortness of breath, SOB with excertion, SOB at rest Gastrointestinal/Abdominal: Denies: abdominal pain Genitourinary: Denies: discharge, frequency, flank pain, hematuria, incontinence Neurologic/Psychiatric: Reports: anxiety, depressed, emotional problems; Denies : headache, numbness, paresthesia Endocrine: Denies: excessive sweating, flushing, intolerance to cold, intolerance to heat, increased hunger Allergies: Coded Allergies: IBUPROFEN (Verified Allergy, Unknown, 10/23/19) Subjective Patient feels better today. Has not vomited but feels nauseous. Objective Last 24 Hour Vital Signs Date Time Temp Pulse Resp B/P (MAP) Pulse Ox O2 Delivery O2 Flow Rate FiO2 8/20/20 09:00 Room Air 10/24/19 08:00 77 10/24/19 08:00 97.9 108 20 112/57 (75) 100 10/24/19 05:26 98.2 96 16 100/78 (85) 100 10/24/19 04:00 96 10/24/19 04:00 98.0 96 20 108/67 (81) 100 10/24/19 00:00 97.8 81 18 122/69 (86) 99 10/23/19 23:48 89 10/23/19 21:31 97.9 84 18 130/67 (88) 99 10/23/19 21:00 Room Air 10/23/19 20:00 97.9 84 18 130/67 (88) 99 10/23/19 19:04 81 10/23/19 16:00 97.7 82 20 96/44 (61) 99 10/23/19 16:00 96 10/23/19 12:00 76 10/23/19 12:00 97.7 70 20 99/60 (73) 99 Intake and Output 10/23/19 10/24/19 19:00 07:00 Intake Total 775 ml 1343 ml Balance 775 ml 1343 ml Intake Oral 650 ml 200 ml IV Total 125 ml 1143 ml # Voids 1 5 Laboratory Tests 10/23/19 15:26: Sodium Level 130L, Potassium Level 2.2*L, Chloride Level 94L, Carbon Dioxide Level 30, Anion Gap 7, Blood Urea Nitrogen 16, Creatinine 1.6H, Estimat Glomerular Filtration Rate 45.0, Glucose Level 148H, Calcium Level 8.9 10/24/19 06:44: Sodium Level 134L, Potassium Level 3.0L, Chloride Level 101, Carbon Dioxide Level 23, Anion Gap 10, Blood Urea Nitrogen 8, Creatinine 1.2, Estimat Glomerular Filtration Rate > 60, Glucose Level 105, Calcium Level 9.2, White Blood Count 6.2, Red Blood Count 4.08L, Hemoglobin 11.2L, Hematocrit 34.7L, Mean Corpuscular Volume 85, Mean Corpuscular Hemoglobin 27.4, Mean Corpuscular Hemoglobin Concent 32.2, Red Cell Distribution Width 13.8, Platelet Count 179, Mean Platelet Volume 7.5, Neutrophils (%) (Auto) 57.2, Lymphocytes (%) (Auto) 35.7, Monocytes (%) (Auto) 5.7, Eosinophils (%) (Auto) 0.6, Basophils (%) (Auto ) 0.9, Phosphorus Level 1.3L, Magnesium Level 2.1 Height (Feet): 5 Height (Inches): 1.00 Weight (Pounds): 150 General Appearance: no apparent distress, alert, alert oriented x3 EENT: PERRL/EOMI, normal ENT inspection, TMs normal Neck: non-tender, normal alignment, supple, normal inspection Cardiovascular: normal peripheral pulses, normal rate, regular rhythm, regularly irregular Respiratory/Chest: chest wall non-tender, lungs clear, normal breath sounds, no respiratory distress, no accessory muscle use Abdomen: non tender, soft, no organomegaly, no mass Extremities: normal range of motion, non-tender, normal inspection Edema: no edema noted Arm (L), no edema noted Arm (R), no edema noted Leg (L), no edema noted Leg (R), no edema noted Pedal (L), no edema noted Pedal (R), no edema noted Generalized 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 Oct 24, 2019 11:19
[2019-10-24] MEDS ORDERED: Metoclopramide 10mg/2ml Inj IVP PRN (11:30)
--- NOTE | 2019-10-24 12:14 | NUR ---
RD ASSESSMENT & RECOMMENDATIONS SEE CARE ACTIVITY FOR COMPLETE ASSESSMENT DAILY ESTIMATED NEEDS: Needs based on 60.6kg general 25-30 kcals/kg 0228-0170 total kcals .8-1.2 g protein/kg 49-73 g total protein 25-30 mL/kg 3550-4231 total fluid mLs NUTRITION DIAGNOSIS: Altered GI fxn r/t N/V as evidenced by pt adm w/ N/V for stated 2 weeks, adm w/ hyponatremia, hypokalemia, volume depletion. CURRENT DIET: Full liquid PO DIET RECOMMENDATIONS--->>> Advance as tolerated to BLAND diet ADDITIONAL RECOMMENDATIONS: 1) Obtain a standing height and weight 2) Monitor lytes daily, replete as needed 3) Add Ensure Clear 4) Monitor BG, noted to be mildly elevated
[2019-10-24] MEDS: Miralax 17gm pkt ORAL PRN (12:42)
--- NOTE | 2019-10-24 14:11 | Nephrology Progress Note ---
Assessment/Plan Plan #KDOI due to volume depletion in the setting of nausea and emesis #Severe hypokalemia #Hyponatremia - hypovolumic #Nausea and emesis - IVF - D5NS + 40kcl at 125 cc/hr - replete K IV today - monitor BMP BID - antiemetics - Gi eval - avoid nephrotoxins - defer renal imaging for now - monitor renal function Time spent 70 min- greater than 50% on care coordination and counseling Subjective ROS Limited/Unobtainable: No Constitutional: Reports: weakness HEENT: Denies: no symptoms, eye pain, blurred vision, tearing, double vision, ear pain, ear discharge, nose pain, nose congestion, throat pain, throat swelling, mouth pain, mouth swelling, other Genitourinary: Denies: no symptoms, burning, discharge, frequency, flank pain, hematuria, incontinence, pain, urgency, other Neurologic/Psychiatric: Denies: no symptoms, anxiety, depressed, emotional problems, headache, numbness, paresthesia, pre-existing deficit, seizure, tingling, tremors, weakness, other Subjective continues to have low electrolytes repleted Objective Objective Last 24 Hour Vital Signs Date Time Temp Pulse Resp B/P (MAP) Pulse Ox O2 Delivery O2 Flow Rate FiO2 10/24/19 12:00 97.9 86 20 89/47 (61) 100 10/24/19 12:00 77 10/24/19 09:00 Room Air 10/24/19 08:00 77 10/24/19 08:00 97.9 108 20 112/57 (75) 100 10/24/19 05:26 98.2 96 16 100/78 (85) 100 10/24/19 04:00 96 10/24/19 04:00 98.0 96 20 108/67 (81) 100 10/24/19 00:00 97.8 81 18 122/69 (86) 99 10/23/19 23:48 89 10/23/19 21:31 97.9 84 18 130/67 (88) 99 10/23/19 21:00 Room Air 10/23/19 20:00 97.9 84 18 130/67 (88) 99 10/23/19 19:04 81 10/23/19 16:00 97.7 82 20 96/44 (61) 99 10/23/19 16:00 96 Intake and Output 10/23/19 10/24/19 19:00 07:00 Intake Total 775 ml 1343 ml Balance 775 ml 1343 ml Intake Oral 650 ml 200 ml IV Total 125 ml 1143 ml # Voids 1 5 Laboratory Tests 10/23/19 15:26: Sodium Level 130L, Potassium Level 2.2*L, Chloride Level 94L, Carbon Dioxide Level 30, Anion Gap 7, Blood Urea Nitrogen 16, Creatinine 1.6H, Estimat Glomerular Filtration Rate 45.0, Glucose Level 148H, Calcium Level 8.9 10/24/19 06:44: Sodium Level 134L, Potassium Level 3.0L, Chloride Level 101, Carbon Dioxide Level 23, Anion Gap 10, Blood Urea Nitrogen 8, Creatinine 1.2, Estimat Glomerular Filtration Rate > 60, Glucose Level 105, Calcium Level 9.2, White Blood Count 6.2, Red Blood Count 4.08L, Hemoglobin 11.2L, Hematocrit 34.7L, Mean Corpuscular Volume 85, Mean Corpuscular Hemoglobin 27.4, Mean Corpuscular Hemoglobin Concent 32.2, Red Cell Distribution Width 13.8, Platelet Count 179, Mean Platelet Volume 7.5, Neutrophils (%) (Auto) 57.2, Lymphocytes (%) (Auto) 35.7, Monocytes (%) (Auto) 5.7, Eosinophils (%) (Auto) 0.6, Basophils (%) (Auto ) 0.9, Phosphorus Level 1.3L, Magnesium Level 2.1 Height (Feet): 5 Height (Inches): 1.00 Weight (Pounds): 150 General Appearance: no apparent distress, alert EENT: PERRL/EOMI, normal ENT inspection Neck: non-tender, normal alignment Cardiovascular: normal peripheral pulses, normal rate, regular rhythm Respiratory/Chest: chest wall non-tender, lungs clear Abdomen: soft Neurologic: alert, oriented x 3 Sherley Alfonso M.D. Oct 24, 2019 14:11
[2019-10-24] MEDS: Phospha 250 Neutral tab ORAL SCH (17:28)
--- NOTE | 2019-10-24 18:56 | NUR ---
NURSE NOTES: Received hand-off report from Irene Bingham RN. Patient is resting semi-fowlers, alert and oriented x3 (baseline), in stable condition, vitals stable, breathing is unlabored and even, bed in lowest and locked position, cardiac cath lab radiology technologist in place, bed alarm on, left hand 24g IV intact, patent, clean, no redness, no infiltration noted, and flushing well.
--- NOTE | 2019-10-24 18:56 | NUR ---
NURSE HAND-OFF REPORT: Important Events on Shift: Patient Status: fc, stable Diet: clear liquid, regular Pending Orders: n/a Pending Results/Labs: n/a Pending MD notification:n/a Latest Vital Signs: Temperature 98.6 , Pulse 94 , B/P 108 /70 , Respiratory Rate 20 , O2 SAT 100 , Room Air, O2 Flow Rate . Vital Sign Comment: EKG Rhythm: Sinus Rhythm Rhythm change?: N MD Notified?: N - MD Response: Latest Pinedo Fall Score: 20 Fall Risk: Low Risk Safety Measures: Call light Within Reach, Bed Alarm Zone 2, Side Rails Side Rails x2, Bed position Low and Locked. Fall Precautions: Yellow Socks Yellow Gown Patient Fall Education Report given to Clarence Gallagher.
--- NOTE | 2019-10-24 19:26 | NUR ---
NURSE HAND-OFF REPORT: Important Events on Shift: new IV on L hand 24g Patient Status: fc, stable Diet: puree, regular, can swallow whole pills Pending Orders: n/a Pending Results/Labs:n/a Pending MD notification:n/a Latest Vital Signs: Temperature 98.6 , Pulse 94 , B/P 108 /70 , Respiratory Rate 20 , O2 SAT 100 , Room Air, O2 Flow Rate . Vital Sign Comment: EKG Rhythm: Sinus Rhythm Rhythm change?: N MD Notified?: N - MD Response: Latest Pinedo Fall Score: 20 Fall Risk: Low Risk Safety Measures: Call light Within Reach, Bed Alarm Zone 2, Side Rails Side Rails x2, Bed position Low and Locked. Fall Precautions: Yellow Socks Yellow Gown Patient Fall Education Report given to Jad AGUIRRE .
--- NOTE | 2019-10-24 21:50 | Neurology Progress Note ---
Interim History Interim History ROS Limited/Unobtainable: No Interim History seen by psych will sign off Objective Physical Exam Last Vital Signs Date Time Temp Pulse Resp B/P (MAP) Pulse Ox O2 Delivery O2 Flow Rate FiO2 10/24/19 20:00 97.7 91 18 98/58 (71) 98 10/24/19 09:00 Room Air Laboratory Tests Test 10/24/19 06:44 White Blood Count 6.2 K/UL (4.8-10.8) Red Blood Count 4.08 M/UL (4.20-5.40) L Hemoglobin 11.2 G/DL (12.0-16.0) L Hematocrit 34.7 % (37.0-47.0) L Mean Corpuscular Volume 85 FL (80-99) Mean Corpuscular Hemoglobin 27.4 PG (27.0-31.0) Mean Corpuscular Hemoglobin Concent 32.2 G/DL (32.0-36.0) Red Cell Distribution Width 13.8 % (11.6-14.8) Platelet Count 179 K/UL (150-450) Mean Platelet Volume 7.5 FL (6.5-10.1) Neutrophils (%) (Auto) 57.2 % (45.0-75.0) Lymphocytes (%) (Auto) 35.7 % (20.0-45.0) Monocytes (%) (Auto) 5.7 % (1.0-10.0) Eosinophils (%) (Auto) 0.6 % (0.0-3.0) Basophils (%) (Auto) 0.9 % (0.0-2.0) Sodium Level 134 MMOL/L (136-145) L Potassium Level 3.0 MMOL/L (3.5-5.1) L Chloride Level 101 MMOL/L (98-107) Carbon Dioxide Level 23 MMOL/L (21-32) Anion Gap 10 mmol/L (5-15) Blood Urea Nitrogen 8 mg/dL (7-18) Creatinine 1.2 MG/DL (0.55-1.30) Estimat Glomerular Filtration Rate > 60 mL/min (>60) Glucose Level 105 MG/DL (74-106) Calcium Level 9.2 MG/DL (8.5-10.1) Phosphorus Level 1.3 MG/DL (2.5-4.9) L Magnesium Level 2.1 MG/DL (1.8-2.4) General: well nourished Head: normocophalic Neck: no rigidity EENT: benign Neurologic Exam Mental Status: awake, alert, oriented x4 Speech: normal speech Language: normal language Objective normal neuro exam Impression/Recommendations Problems: (1) Hypokalemia (2) Dizziness (3) Hyponatremia (4) Intractable nausea and vomiting Diagnostic Impression Suspect psychogenic Pt with tangential speech, pressure, rule out bipolar agree with pain control Roberto Carlos Harkins MD Oct 24, 2019 21:50
--- NOTE | 2019-10-24 23:57 | Psych Consult Progress Note ---
Psychiatry Progress Note Psychiatry Progress Note Medications Current Medications Medications (Trade) Dose Ordered Sig/Robert Route PRN Reason Start Time Stop Time Status Last Admin Dose Admin Acetaminophen (Tylenol) 650 mg Q4H PRN ORAL Mild Pain (Pain Scale 1-3) 10/23/19 10:30 11/22/19 10:29 Acetaminophen (Tylenol) 650 mg Q4H PRN ORAL Temp >100.5 10/23/19 11:00 11/22/19 10:59 Acetaminophen (Tylenol) 650 mg Q4H PRN RECTAL Mild Pain (Pain Scale 1-3) 10/23/19 11:00 11/22/19 10:59 Acetaminophen (Tylenol) 650 mg Q4H PRN RECTAL Temp >100.5 10/23/19 11:00 11/22/19 10:59 Dextrose (Dextrose 50%) 25 ml Q30M PRN IV Hypoglycemia 10/23/19 11:00 01/21/20 10:59 Dextrose (Dextrose 50%) 50 ml Q30M PRN IV Hypoglycemia 10/23/19 11:00 01/21/20 10:59 Diphenhydramine HCl (Benadryl) 25 mg Q6H PRN ORAL Itching/Pruritis 10/23/19 11:00 11/22/19 10:59 Escitalopram Oxalate (Lexapro) 10 mg DAILY ORAL 10/24/19 09:00 11/23/19 08:59 10/24/19 08:22 Heparin Sodium (Porcine) (Heparin 5000 units/ml) 5,000 units EVERY 12 HOURS SUBQ 10/23/19 21:00 12/07/19 20:59 10/24/19 20:05 Metoclopramide HCl (Reglan) 10 mg Q6H PRN IVP Nausea & Vomiting 10/24/19 11:30 11/22/19 10:59 Ondansetron HCl (Zofran ODT) 4 mg Q6H PRN ORAL Nausea & Vomiting 10/24/19 12:00 11/23/19 11:59 Pantoprazole (Protonix) 40 mg ACBREAKFAST ORAL 10/24/19 11:30 11/23/19 11:29 10/24/19 12:20 Phosphorus (Phospha 250 Neutral) 250 mg THREE TIMES A DAY ORAL 10/24/19 18:00 9/19/20 17:59 10/24/19 17:28 Polyethylene Glycol (Miralax) 17 gm DAILY PRN ORAL Constipation 10/23/19 09:00 11/22/19 08:59 10/24/19 12:42 Potassium Chloride (K-Dur) 20 meq DAILY ORAL 10/24/19 12:00 01/22/20 11:59 10/24/19 12:20 Quetiapine Fumarate (SEROqueL) 50 mg Q12HR ORAL 10/24/19 00:30 12/08/19 00:29 10/24/19 08:22 Neurological/Psychiatric: Reports: anxiety, depressed, emotional problems; Denies: no symptoms, headache, numbness, paresthesia, pre-existing deficit, seizure, tingling, tremors, weakness, other Allergies: Coded Allergies: IBUPROFEN (Verified Allergy, Unknown, 10/23/19) Objective Data Height (Feet): 5 Height (Inches): 1.00 Weight (Pounds): 133 General Appearance: no apparent distress, alert, alert oriented x3 Additional Comments: alert, oriented times self, place, and situation. Mood is depressed and anxious. Affect is flat. Thought process concrete. Thought content, no suicidal or homicidal ideation. Cognition is impaired. Insight and judgment are limited. Assessment/Plan Assessment/Plan: ASSESSMENT: [place] I Rule out major depressive disorder, psychiatric symptoms. OCD. [place] II Deferred. [place] III Nausea and vomiting. [place] IV Unknown. [place] V 50 PLAN: 1. Lexapro 10 mg in the morning. 2. Seroquel 50 mg at bedtime. 3. The patient is not meeting the criteria for 5150. Afshan Roldan MD Oct 24, 2019 23:57
[2019-10-25] VITALS: BP 103/54
--- NOTE | 2019-10-25 00:23 | NUR ---
NURSE NOTES: BGL 96, alert and oriented x3, able to communicate needs, no change in condition noted.
[2019-10-25 04:00] VITALS: BP 103/61
[2019-10-25 07:16] LABS: BASOPHILS % (AUTO) 1.8 % (0.0-2.0); EOSINOPHILS % (AUTO) 1.1 % (0.0-3.0); HEMATOCRIT 37.1 % (37.0-47.0); HEMOGLOBIN 11.8 G/DL (12.0-16.0); LYMPHOCYTES % (AUTO) 38.9 % (20.0-45.0); MEAN CORPUSCULAR VOLUME 85 FL (80-99); NEUTROPHILS % (AUTO) 48.1 % (45.0-75.0); PLATELET COUNT 204 K/UL (150-450); RED BLOOD COUNT 4.37 M/UL (4.20-5.40); RED CELL DISTRIBUTION WIDTH 13.3 % (11.6-14.8); WHITE BLOOD COUNT 5.1 K/UL (4.8-10.8)
--- NOTE | 2019-10-25 07:22 | NUR ---
NURSE NOTES: Received pt from TIMOTHY Gallagher. Patient is ambulatory. AO x 3. On RA. c/o of dizziness. IV on L hand 22g noted. Side rails x 2. Bed in the lowest and locked. Educated pt to call for assistance when needed. Call light within reach. Will continue to monitor
--- NOTE | 2019-10-25 07:22 | NUR ---
NURSE HAND-OFF REPORT: Important Events on Shift: Phosphorus was 3.1 (low), potassium 3.0 (low), sodium 134 (low) Patient Status: stable, full code Diet: advance diet as tolerated to bland diet, high calorie protein Pending Orders: Pending Results/Labs: Pending MD notification: Latest Vital Signs: Temperature 98.1 , Pulse 87 , B/P 103 /61 , Respiratory Rate 16 , O2 SAT 100 , Room Air, O2 Flow Rate . Vital Sign Comment: stable, patient denies pain and no change in condition noted EKG Rhythm: Sinus Rhythm Rhythm change?: N MD Notified?: N - MD Response: Latest Pinedo Fall Score: 20 Fall Risk: Low Risk Safety Measures: Call light Within Reach, Bed Alarm Zone 2, Side Rails Side Rails x2, Bed position Low and Locked. Fall Precautions: Yellow Socks Yellow Gown Patient Fall Education Report given to TIMOTHY Elizondo.
[2019-10-25 07:49] LABS: ALANINE AMINOTRANSFERASE 24 U/L (12-78); ALBUMIN 2.8 G/DL (3.4-5.0); ALBUMIN/GLOBULIN RATIO 0.6 (1.0-2.7); ALKALINE PHOSPHATASE 78 U/L (46-116); ANION GAP 7 mmol/L (5-15); ASPARTATE AMINO TRANSFERASE 24 U/L (15-37); BILIRUBIN,TOTAL 0.5 MG/DL (0.2-1.0); BLOOD UREA NITROGEN 4 mg/dL (7-18); CALCIUM 8.9 MG/DL (8.5-10.1); CARBON DIOXIDE 27 MMOL/L (21-32); CHLORIDE 104 MMOL/L (98-107); CREATININE 1.1 MG/DL (0.55-1.30); POTASSIUM 3.3 MMOL/L (3.5-5.1); SODIUM 138 MMOL/L (136-145)
[2019-10-25 08:00] VITALS: BP 104/65
--- NOTE | 2019-10-25 09:15 | NUR ---
PT EVALUATION NOTE Patient seen for initial evaluation. Patient presents with generalized weakness and decreased balance which impairs patient's ability to perform mobility tasks safely. Patient able to transfer with SBA, unsteady upon standing however no loss of balance. Patient ambulated 30 ft with use of FWW due to being unsteady. Patient will benefit from skilled inpatient PT intervention to increase strength and postural stability for improved level of functional mobility, safety and to decrease fall risk. Anticipate discharge home once medically cleared by MD. Patient may benefit from use of FWW for ambulation depending on patient progress. Addendum: 10/25/19 at 1227 by ELMO MAGALLANES PT Amended: Links added.
--- NOTE | 2019-10-25 09:22 | Nephrology Progress Note ---
Assessment/Plan Plan #KODI due to volume depletion in the setting of nausea and emesis #Severe hypokalemia #Hyponatremia - hypovolumic #Nausea and emesis - IVF - D5NS + 40kcl at 125 cc/hr - replete K IV today - monitor BMP BID - antiemetics - Gi eval - avoid nephrotoxins - defer renal imaging for now - monitor renal function Time spent 70 min- greater than 50% on care coordination and counseling Subjective ROS Limited/Unobtainable: Yes Constitutional: Reports: weakness HEENT: Denies: no symptoms, eye pain, blurred vision, tearing, double vision, ear pain, ear discharge, nose pain, nose congestion, throat pain, throat swelling, mouth pain, mouth swelling, other Genitourinary: Denies: no symptoms, burning, discharge, frequency, flank pain, hematuria, incontinence, pain, urgency, other Neurologic/Psychiatric: Denies: no symptoms, anxiety, depressed, emotional problems, headache, numbness, paresthesia, pre-existing deficit, seizure, tingling, tremors, weakness, other Subjective continues to have low electrolytes repleted Objective Objective Last 24 Hour Vital Signs Date Time Temp Pulse Resp B/P (MAP) Pulse Ox O2 Delivery O2 Flow Rate FiO2 10/25/19 09:17 Room Air 10/25/19 08:00 97.9 88 18 104/65 (78) 98 10/25/19 04:00 98.1 87 16 103/61 (75) 100 10/25/19 04:00 73 10/25/19 00:00 97.7 87 16 103/54 (70) 98 10/25/19 00:00 87 10/24/19 21:00 Room Air 10/24/19 20:00 97.7 91 18 98/58 (71) 98 10/24/19 20:00 91 10/24/19 16:00 98.6 94 20 108/70 (83) 100 10/24/19 16:00 86 10/24/19 12:00 97.9 86 20 89/47 (61) 100 10/24/19 12:00 77 Intake and Output 10/24/19 10/25/19 19:00 07:00 Intake Total 800 ml 200 ml Balance 800 ml 200 ml Intake Oral 800 ml 200 ml # Voids 4 1 # Bowel Movements 2 Laboratory Tests 10/25/19 00:16: POC Whole Blood Glucose 96 10/25/19 06:45: White Blood Count 5.1, Red Blood Count 4.37, Hemoglobin 11.8L, Hematocrit 37.1, Mean Corpuscular Volume 85, Mean Corpuscular Hemoglobin 27.1, Mean Corpuscular Hemoglobin Concent 32.0, Red Cell Distribution Width 13.3, Platelet Count 204, Mean Platelet Volume 6.3L, Neutrophils (%) (Auto) 48.1, Lymphocytes (%) (Auto) 38.9, Monocytes (%) (Auto) 10.0, Eosinophils (%) (Auto) 1.1, Basophils (%) (Auto ) 1.8, Sodium Level 138, Potassium Level 3.3L, Chloride Level 104, Carbon Dioxide Level 27, Anion Gap 7, Blood Urea Nitrogen 4L, Creatinine 1.1, Estimat Glomerular Filtration Rate > 60, Glucose Level 86, Calcium Level 8.9, Total Bilirubin 0.5, Aspartate Amino Transf (AST/SGOT) 24, Alanine Aminotransferase ( ALT/SGPT) 24, Alkaline Phosphatase 78, Total Protein 7.2, Albumin 2.8L, Globulin 4.4, Albumin/Globulin Ratio 0.6L Height (Feet): 5 Height (Inches): 1.00 Weight (Pounds): 133 Sherley Alfonso M.D. Oct 25, 2019 09:22
[2019-10-25] MEDS ORDERED: SEROQUEL25 MG ORAL (09:49)
[2019-10-25] MEDS ORDERED: ZOFRAN4 M3 ORAL (09:49)
[2019-10-25] MEDS ORDERED: LEXAPRO10 MG ORAL (09:49)
[2019-10-25] MEDS: Phospha 250 Neutral tab ORAL SCH ×2 (09:50→13:21)
[2019-10-25] MEDS: Heparin 5000 units/ml inj SUBQ SCH (09:51)
--- NOTE | 2019-10-25 10:04 | Discharge Summary ---
Discharge Summary Hospital Course Date of Admission Oct 23, 2019 at 06:51 Date of Discharge 10/25/19 Admitting Diagnosis hyponatremia, hypokalemia, vomiting HPI Nia Kwon is a 34 year old female who was admitted on Oct 23, 2019 at 06:51 for Hyponatremia,Hypokalemia,Vomiting 34 year old Female with a PMH of "circulation issue" presents with nausea and vomiting for 8 weeks. It is non bloody and non bilious. She states that she can not keep nay food or drink down. It is provoked by her throat feeling dry which she cant get rid of. She has not had a BM in about6 days but when she did it was non bloody or black. He urine is output is low and very concentrated. She denies and fever, dysuria, chest pain, abdominal pain, headaches or recent travel. She denies drug use. She is recently out of work at [employer]. She has no family support. She feels down and depressed but does not have any SI or HI. Consultations Psychiatry Nephrology Neurology Hospital Course 34 year old Female with a PMH of "circulation issue" presents with nausea and vomiting for 8 weeks. Patient improved on the floor. She had no vomiting for 48 hours. She is able to tolerate PO. Nephrology recs and manament appreciated. Psychiatry and neurology evaluated the paint and agrees that nausea and vomiting is psychogenic. She will be started on lexapro, seroquel and go home with zofran PRN with prescription in hand. She will follow with her PCP within 1 week for EKG for QTC and lab work. ED precautions discussed with patient. NO SI or HI at this time. #Nausea/Vomiting - likely psychogenic but will evaluate organic causes #Hyponatremia - resolved #Hypokalemia - resolved #Volume depletion - resolved - Inpatient care completed - will follow with PCP - IV Fluid hydration with replacement of electrolytes - Trended BMP - Zofran 4mg PRN for nausea and vomiting, monitor QTC - Protonix 40mg PO daily - Advanced diet - Consult to nephrology - Consult to Gastroenterology - Consult to psychiatry Heparin SubQ 5000 BID Case MGMT consult for PCP financial services agent for home safety I spent 35 minutes on this discharge with 18 on care coordination and counseling. I discussed with all consultants. I discussed with RNs and pharmacy.I also made sure pateint has PCP for close foloow up after DC. Discharge Medications New Medications: Escitalopram Oxalate* (Lexapro*) 10 Mg Tablet 10 MG ORAL DAILY for 30 Days, TAB Ondansetron* (Zofran*) 4 Mg Tablet 4 MG ORAL Q6H PRN for 28 Days, #30 TAB Quetiapine Fumarate* (Seroquel*) 25 Mg Tablet 50 MG ORAL Q12HR for 30 Days, TAB Discharge Condition Upon Discharge: stable Discharge Vital Signs Last Vital Signs Date Time Temp Pulse Resp B/P (MAP) Pulse Ox O2 Delivery O2 Flow Rate FiO2 10/25/19 09:17 Room Air 10/25/19 08:00 97.9 88 18 104/65 (78) 98 Discharge Disposition Patient was discharged to home with friend Discharge Diagnoses: (1) Depression (2) Hyponatremia (3) Dizziness (4) Hypokalemia (5) Intractable nausea and vomiting Seth Thompson M.D. Oct 25, 2019 10:04
[2019-10-25 12:00] VITALS: BP 113/68
--- NOTE | 2019-10-25 14:37 | NUR ---
NURSE NOTES: Patient was discharged to home ([address] [place] [address]) via taxi using voucher in stable condition. ID, heart monitor and IV were removed. No s/s of infection on the removal site. Belongings were accounted. Discharge instructions and prescribed medications were given to patient.
--- NOTE | 2019-10-25 14:59 | NUR ---
INSURANCE DISCHARGE SUMMARY FAXED TO [facility] T: [phone] F: [phone]
--- NOTE | 2019-10-25 23:42 | Psych Consult Progress Note ---
Psychiatry Progress Note Psychiatry Progress Note Neurological/Psychiatric: Reports: anxiety, depressed, emotional problems; Denies: no symptoms, headache, numbness, paresthesia, pre-existing deficit, seizure, tingling, tremors, weakness, other Allergies: Coded Allergies: IBUPROFEN (Verified Allergy, Unknown, 10/23/19) Objective Data Height (Feet): 5 Height (Inches): 1.00 Weight (Pounds): 130 General Appearance: no apparent distress, alert, alert oriented x3 Additional Comments: alert, oriented times self, place, and situation. Mood is depressed and anxious. Affect is flat. Thought process concrete. Thought content, no suicidal or homicidal ideation. Cognition is impaired. Insight and judgment are limited. Assessment/Plan Rodessa I: ASSESSMENT: Rodessa I Rule out major depressive disorder, psychiatric symptoms. OCD. Rodessa II Deferred. Rodessa III Nausea and vomiting. Rodessa IV Unknown. Rodessa V 50 PLAN: 1. Lexapro 10 mg in the morning. 2. Seroquel 50 mg at bedtime. 3. The patient is not meeting the criteria for 5150. Status Narrative ASSESSMENT: Rodessa I Rule out major depressive disorder, psychiatric symptoms. OCD. Rodessa II Deferred. Rodessa III Nausea and vomiting. Rodessa IV Unknown. Rodessa V 50 PLAN: 1. Lexapro 10 mg in the morning. 2. Seroquel 50 mg at bedtime. 3. The patient is not meeting the criteria for 5150. Assessment/Plan: ASSESSMENT: Rodessa I Rule out major depressive disorder, psychiatric symptoms. OCD. Rodessa II Deferred. Rodessa III Nausea and vomiting. Rodessa IV Unknown. Rodessa V 50 PLAN: 1. Lexapro 10 mg in the morning. 2. Seroquel 50 mg at bedtime. 3. The patient is not meeting the criteria for 5150. Afshan Roldan MD Oct 25, 2019 23:42
== END 2019-10-25 14:35 | disposition home or self-care (01) | DRG 426 ==
LOC: EDBD 02:48 → EMR 03:22 → 2E 06:51 → EDBEDREQ 07:19 → 2E 10:09
DX: E87.1 Hypo-osmolality and hyponatremia (principal); N17.9 Acute kidney failure, unspecified; F32.3 Major depressive disorder, single episode, severe with psychotic features; E86.0 Dehydration; E87.6 Hypokalemia; Z88.6 Allergy status to analgesic agent; R11.2 Nausea with vomiting, unspecified
CPT/HCPCS: 36415; 71045; 80048; 80053; 80307; 81003; 81025; 82962; 83690; 83735; 83880; 84100; 84443; 84484; 85025; 93005; 96361; 96365; 96366; 96375; 99291; C9399; J2405; J2765; J7030; J8499